=== PATIENT | male | born 1960 | race Caucasian/White ===

== ENCOUNTER 2020-06-19 22:46 | Inpatient (IN) | payer OTHER ==
[~2020-06-19] VITALS: Ht 180.3 cm; Wt 87.5 kg
--- NOTE | ~2020-06-19 | EMS ---
[address] [address] EMS Patient Care Report Name: EVE BEARDEN Room: [address] Isis#: [id number] Admission: 06/20/20 Attend Phys: Maria C De Santiago MD Discharge: Date of : 62 Report #: [id number] THIS REPORT FOR: //name// Report Transmitted: 06/20/2020 04:34 EMS Care Summary [facility] Incident [id number] @ 06/19/2020 22:02 Incident Location [address] [place] [address] Patient eve Bearden Male, 60 Years 1960 Patient Address [address] [place] [address] Patient History Hyperlipidemia,Hypertension (HTN), Patient Allergies , Patient Medications Lipitor, Flomax, Lisinopril, Hydrochlorothiazide (Hctz), Aspirin, Chief Complaint Hypotension/related symptoms Disposition Transported No Lights/[place] Dispatch Reason Unconscious/Fainting Transported To [facility] Narrative Medic 322 was disatched for a 911 call for an unresponsive. Medic 322 arrived on scene to find a male subject sitting in a pile of laundry. The patient did not know why Medic 322 was at his house. He stated that he felt fine. The patient's stated that he tried to get up and walked and passed out. This [address] [address] EMS Patient Care Report Name: EVE BEARDEN Room: [address] M.R.#: [id number] Admission: 06/20/20 Attend Phys: Maria C De Santiago MD Discharge: Date of : 62 Report #: [id number] was the second time the patient passed out today. Medic Liliya started an assessment on the patient. Medic 322 trasnferred the patient to the stair chair using the stand and pivot maneuver, and secured him using all the straps provided. The patient was transported to the [facility] using the stair chiar. Medic 322 transsferred the patient to the litter using the stand and pivot maneuver. the patient was transferred to the litter without difficulty. Medic 322 transported the patient to the ambulance using the litter. Once in the back of the ambulance medic Liliya continued her assessment on the patient. Marialuisa Kolb took a set of vitals on the patient about every ten to fifteen minuteS. the medic started an IV and got a blood sugar off the IV. The patient rested comfortably on the litter during the transport. he wanted to be transported to his room using the litter. The patient was transferred to the hospital bed using the sheet slide maneuver. Medic 322 gave a verbal report to the nurse, and transferred patient care to the nurse. HIPAA was signed by the nurse. Marialuisa Kolb EMT-P #[id number] Initial Vitals @22:26 @22:08P: 78,R: 18,BP: 64/48, @22:30P: 78,R: 18,BP: 85/58, @22:08GCS: 15, @22:30GCS: 15, @22:30Glucose: 150, Assessments @22:08MENTAL:SKIN:HEENT:LUNG SOUNDS:ABDOMEN:PELVIS//GI:EXTREMITIES:PULSE:NEURO: Impression Hypotension Procedures @22:25 cc () Site: Antecubital-RightResponse: ImprovedSucceeded@22:263-Lead ECGResponse: UnchangedSucceeded Timeline 22:,Call Received 22:01,Dispatch Notified 22:,Psap Call 22:02,Dispatched 22:03,En Route 22:07,On Scene 22:08,At Patient 22:08,BP: 64/48 M,PULSE: 78,RR: 18 R,SPO2: Ox,ETCO2: ,BG: ,PAIN: ,GCS: , 22:08,BP: / M,PULSE: ,RR: R,SPO2: Ox,ETCO2: ,BG: ,PAIN: ,GCS: 15, 22:25, cc Site: Antecubital-Right,Response: ImprovedSucceeded, [place] [address] EMS Patient Care Report Name: EVE BEARDEN Room: [address] M.R.#: [id number] Admission: 06/20/20 Attend Phys: Maria C De Santiago MD Discharge: Date of : 62 Report #: [id number] 22:26,3-Lead ECG,Response: UnchangedSucceeded, 22:26,BP: / M,PULSE: ,RR: R,SPO2: Ox,ETCO2: ,BG: ,PAIN: ,GCS: , 22:30,Depart Scene 22:30,BP: 85/58 M,PULSE: 78,RR: 18 R,SPO2: Ox,ETCO2: ,BG: ,PAIN: ,GCS: , 22:30,BP: / M,PULSE: ,RR: R,SPO2: Ox,ETCO2: ,BG: ,PAIN: ,GCS: 15, 22:30,BP: / M,PULSE: ,RR: R,SPO2: Ox,ETCO2: ,B,PAIN: ,GCS: , 22:43,At Destination 23:00,Call Closed Disclaimer v1.1 Copyright 2020 [employer], [employer] This EMS Care Summary contains data elements from the applicable legal record (which may be displayed differently). It is designed to provide pertinent information for the following purposes: continuity of care, clinical quality, and state data reporting. The complete legal record is available to ED staff and administrators of the receiving hospital in [employer]'s Patient Tracker. All data is provided "as is."
[2020-06-19 22:56] VITALS: BP 93/51
[2020-06-19] MEDS ORDERED: LISINOPRIL10 MG PO (23:02)
[2020-06-19] MEDS ORDERED: HYDROCHLOROTHIA25 M2 PO (23:02)
[2020-06-19] MEDS ORDERED: ASA81BEC PO (23:03)
[2020-06-19] MEDS ORDERED: LEXAPRO 10 MG T10 M2 PO (23:03)
[2020-06-19] MEDS ORDERED: LIPITOR10 MG PO (23:03)
[2020-06-19 23:51] LABS: ABSOLUTE EOSINOPHILS 0.1 thou/uL (0.0-0.7); ABSOLUTE LYMPHOCYTES 1.7 thou/uL (0.8-5.3); ABSOLUTE MONOCYTES 0.5 thou/uL (0.0-1.2); ABSOLUTE NEUTROPHILS 3.4 thou/uL (1.6-8.1); BASOPHILS 0.4 %; EOSINOPHILS 2.1 %; HEMATOCRIT 39.1 % (42.0-52.0); HEMOGLOBIN 13.1 gm/dL (14.0-18.0); LYMPHOCYTES 29.3 %; MCH 30.9 pg (26.0-34.0); MCHC 33.4 g/dL (28.0-37.0); MCV 92.3 fL (80.0-100.0); MONOCYTES 8.6 %; MPV 7.7 fl. (7.2-11.1); NUCLEATED RBCS 0 /100WBC; PLATELET COUNT* 275 thou/uL (150-400); POLYS 59.6 %; RBC 4.23 mil/uL (4.50-6.00); RDW-CV 13.5 % (10.5-14.5); WBC 5.7 thou/uL (4.0-11.0)
[2020-06-20 00:02] LABS: CREATININE 1.3 mg/dL (0.6-1.3); POTASSIUM 4.1 mmol/L (3.5-5.1)
[2020-06-20 00:05] LABS: ALBUMIN 3.5 g/dL (3.4-5.0); MAGNESIUM 2.1 mg/dL (1.8-2.4); TOTAL BILIRUBIN 0.1 mg/dL (<0.1-1.0); TOTAL PROTEIN 7.2 g/dL (6.4-8.2)
--- NOTE | 2020-06-20 00:47 | NUR ---
ER NOTIFIED UPON PT RETURN PT CONNECTED TO MONITOR
[2020-06-20 03:25] VITALS: BP 90/42
[2020-06-20 03:35] VITALS: BP 101/40
--- NOTE | 2020-06-20 05:10 | NUR ---
ASSUMED CARE OF PATIENT APPROX 0330. PT A&OX4, VSS ON ROOM AIR, FALL PRECAUTIONS INITIATED. HOURLY ROUNDINGS COMPLETE, WILL CONTINUE TO MONITOR.
[2020-06-20 08:15] VITALS: BP 104/57
--- NOTE | 2020-06-20 10:28 | EKG ---
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
--- NOTE | 2020-06-20 11:46 | NUR ---
SPOKE WITH PT. HE WAS ALERT AND ORIENTED. LIVES WITH HIS AND CHILDREN. NO USE OF DME OR HOME HEALTH. HE SAID HE WAS INDEPENDENT. NO CONCERNS NOTED. PLANS TO DISCHARGE HOME POSSIBLY TOMORROW.
--- NOTE | 2020-06-20 12:43 | NUR ---
RECIEVED REPORT FROM TANIYA ADAM ON MS OF EXPECTED TRANSFER TO TELE STATUS AT 1132- PT ARRIVED TO UNIT ROOM 218 VIA W/C AT 1230, SBA TO BED-VICE PRESIDENT OF SALES PLACE ORDERED NOTED SR WITH PAC- VS 98.5 18 128/64 75 96% ON RA- PT A&O X4- SBA WITH TRANSFERS FOR SAFETY- DENIES ANY C/O PAIN-PRIOR ASSESSMENT REVIWED AND THIS NURSE AGRESS-LAST BM REPORTED 06/19/20- BOWEL PREP TO START THIS SHIFT FOR PLANNED COLONOSCOPY MRAIO- CALL LIGHT AND PERSONAL BELONGINGS WITH IN REACH- ALL NEEDS MET AT THIS TIME-WCTM
[2020-06-20 12:53] VITALS: BP 128/64
[2020-06-20 16:33] VITALS: BP 113/64
[2020-06-20 20:00] VITALS: BP 128/66
--- NOTE | 2020-06-20 20:00 | NUR ---
RECEIVED REPORT AND ASSUMED CARE OF PT, ASSESSMENT COMPLETED. PT HAS FINISHED MIRALAX PREP AND STOOLS CLEAR AT THIS TIME. TELEMETRY ON SHOWING SB. WILL CONT TO MONITOR AND ASSIST NEEDED.
[2020-06-21 00:04] VITALS: BP 119/55
[2020-06-21 04:23] LABS: HEMATOCRIT 35.3 % (42.0-52.0); HEMOGLOBIN 11.8 gm/dL (14.0-18.0); MCH 30.7 pg (26.0-34.0); MCHC 33.4 g/dL (28.0-37.0); MPV 8.1 fl. (7.2-11.1); RBC 3.84 mil/uL (4.50-6.00); RDW-CV 13.6 % (10.5-14.5); WBC 5.3 thou/uL (4.0-11.0)
[2020-06-21 04:41] VITALS: BP 126/62
[2020-06-21 05:13] LABS: ALBUMIN 3.2 g/dL (3.4-5.0); CALCIUM 8.4 mg/dL (8.5-10.1); CREATININE 0.8 mg/dL (0.6-1.3); MAGNESIUM 1.7 mg/dL (1.8-2.4); POTASSIUM 3.5 mmol/L (3.5-5.1); TOTAL BILIRUBIN 0.5 mg/dL (<0.1-1.0); TOTAL PROTEIN 6.5 g/dL (6.4-8.2)
--- NOTE | 2020-06-21 06:02 | NUR ---
SLEPT WELL TONIGHT. NPO SINCE [place] FOR GI TESTS TODAY. INDEPENDENT BRP WITH STEADY GAIT. NO CHANGE IN ASSESSMENT OR STOOLS. TELEMETRY CONT TO SHOW SB. HS GOALS OF REST AND SAFETY ACHIEVED.
[2020-06-21] MEDS ORDERED: MIRALAX17 G1 PO (07:46)
[2020-06-21] MEDS ORDERED: CIPRO500 M1 PO (07:46)
[2020-06-21 08:00] VITALS: BP 118/52
[2020-06-21 08:49] VITALS: BP 126/62
--- NOTE | 2020-06-21 09:57 | NUR ---
RECIEVED REPORT AROUND 0730. ASSUMED CARE. PT LYING IN BED. IV INTACT RIGHT AC. HEART MONITOR ATTACHED AT SB. PT TO HAVE COLONOSCOPY THIS AM. PT ADVISED TO BE IN ONLY GOWN. PRE OP CHECKLIST DONE. MEDS GIVEN PER AUG. PT LEFT UNIT AROUND 0945 WITH NURSING STAFF FOR PROCEDURE. COLON PREP DONE PRIOR SHIFT. VS AND ASSESSMENT CHARTED.
--- NOTE | 2020-06-21 10:57 | NUR ---
CM INFORMED DURING PRIME ROUNDING OF PLAN OF CARE FOR THE PT. PLANNED GI PROCEDURE TODAY FOR COLONOSCOPY. PLAN FOR PT TO D/C IF MEDICALLY STABLE POST PROCEDURE. NO D/C PLANNING PROCEDURES ANTICIPATED. CM WILL REMAIN AVAILABLE TO ASSIST AND FOLLOW NEEDED.
--- NOTE | 2020-06-21 12:30 | CON ---
[address] [address] CONSULTATION Name: EVE BEARDEN Room: [address] IN M.R.#: [id number] Admission: 06/20/20 Attend Phys: Maria C De Santiago MD Discharge: Date of : 62 Report #: [id number] THIS REPORT FOR: cc: FAM - No family physician/PCP FAM - No family physician/PCP ~ Jose Spain MD DATE OF SERVICE: 06/20/2020 The patient does not have a PCP. Please note at the time of this dictation, the patient was seen and physically examined by myself. REASON FOR CONSULTATION: Abnormal CT and abdominal pain. HISTORY OF PRESENT ILLNESS: This is a pleasant 60-year-old male who was doing relatively well. He had a tooth pulled about 10 days ago and was placed on antibiotics. Ever since then, he has had issues with constipation and had not gone for quite some time. The patient states that yesterday he had not gone, he took 3 laxatives. He had been feeling fine and then in the middle of the night, he awakened and then his found him on the floor. His eyes were open. He had no recollection of how he got there and was having some significant abdominal discomfort at that time. called 911. They brought him to the Emergency Room, it was noted that he had a low blood pressure and he had had numerous very liquidy stools afterwards. The patient was last seen by us back in 2015 that showed a hyperplastic colon polyps, otherwise negative. He denies any upper GI symptoms at this time. ALLERGIES: PENICILLIN. MEDICATIONS: From home include atorvastatin, aspirin, Lexapro, hydrochlorothiazide, and Zestril. PAST MEDICAL HISTORY: Hypertension. PAST SURGICAL HISTORY: Negative. FAMILY HISTORY: Negative for any GI or female cancers. SOCIAL HISTORY: Alcohol use on special occasions and does admit to marijuana use. REVIEW OF SYSTEMS: Twelve-point review of systems is essentially negative except what is [place] [address] CONSULTATION Name: EVE BEARDEN Room: [address] [place] [facility].#: [id number] Admission: 06/20/20 Attend Phys: Maria C De Santiago MD Discharge: Date of : 62 Report #: [id number] PHYSICAL EXAMINATION: VITAL SIGNS: Temperature 36.2, pulse 61, respirations 18, blood pressure 104/40. HEART: Regular rate and rhythm. LUNGS: Clear. ABDOMEN: Soft, positive bowel sounds in all 4 quadrants with some very mild tenderness noted in the upper and left side of the colon. LABORATORY DATA: White count is 5.7, platelets 275, hemoglobin 13.1. His GFR is 57. LFTs are completely normal. CT showed diffuse colitis from the hepatic flexure to the sigmoid colon with food and liquid noted in the stomach as well. IMPRESSION: 1. Abdominal pain, improving. 2. Constipation, resolved. 3. Abnormal CT, diffuse colitis. 4. Recent antibiotic use. 5. History of colon polyps, hyperplastic. PLAN: 1. Colonoscopy tomorrow. 2. Likely following the colonoscopy, the patient will be able to be discharged at that time. Thank you for allowing us to participate in this patient's care. Please do not hesitate to call with any questions in regard to this consult. Patient appears to have had a vaso-vagal episode from BM. Would recommend colonoscopy to evaluate the colitis. Further recommendations based on colonoscopy. Agree with the above assessment and plan by Nichole Licea. <ELECTRONICALLY SIGNED> By: Jose Spain MD 06/21/20 1230 1005 1020Jose Spain MD /nt
[2020-06-21 13:09] VITALS: BP 126/62
[2020-06-21 13:29] VITALS: BP 126/62
--- NOTE | 2020-06-21 14:38 | NUR ---
DISCHARGE ORDERS RECIEVED. IV TAKEN OUT. HEART MONITOR OFF. DISCHARGE PACKET GIVEN TO PT. COMMUNICATED UNDERSTANDING. PT LEFT UNIT VIA WALKING WITH NURSING STAFF, SON, AND ALL BELONGINGS AT 1430.
== END 2020-06-21 14:30 | disposition home or self-care (01) | DRG 640 ==
LOC: M.ERS 22:46 → M.TBA-ER 06-20 02:11 → M.3W 06-20 03:25 → M.2W 06-20 08:45
PROVIDERS: Emergency Medicine; ADMIT Internal Medicine; ATTEND Internal Medicine
PROC: 0DJD8ZZ Inspection of Lower Intestinal Tract, Via Natural or Artificial Opening Endoscopic (ICD-10-PCS; principal; 2020-06-21)
DX: E86.0 Dehydration (principal); K55.032 Diffuse acute (reversible) ischemia of large intestine; E87.2 Acidosis; I10 Essential (primary) hypertension; F12.90 Cannabis use, unspecified, uncomplicated; K64.4 Residual hemorrhoidal skin tags; K57.30 Diverticulosis of large intestine without perforation or abscess without bleeding; R93.3 Abnormal findings on diagnostic imaging of other parts of digestive tract; I95.9 Hypotension, unspecified; Z20.828 Contact with and (suspected) exposure to other viral communicable diseases; Z79.82 Long term (current) use of aspirin; Z79.899 Other long term (current) drug therapy; Z88.0 Allergy status to penicillin; Z87.891 Personal history of nicotine dependence; Z72.89 Other problems related to lifestyle